=== PATIENT | male | born 1940 | race Caucasian/White ===

== ENCOUNTER 2018-03-12 09:00 | Emergency (ER) | payer MEDICAID, MEDICARE ==
[2018-03-12 09:19] VITALS: RESP 18
[2018-03-12 09:20] VITALS: BMI 25.0
[2018-03-12 10:38] LABS: URINE BILIRUBIN NEGATIVE (NEGATIVE); URINE BLOOD NEGATIVE (NEGATIVE); URINE CLARITY Clear (Clear); URINE COLOR Yellow (YELLOW); URINE GLUCOSE (UA) NORMAL (Normal); URINE LEUKOCYTE ESTERASE NEG Leu/uL (Negative); URINE PROTEIN NEGATIVE (NEGATIVE); URINE UROBILINOGEN NORMAL mg/dL (0.2-1.0)
--- NOTE | 2018-03-12 11:22 | RAD ---
PROCEDURE: Radiographs of the Lumbar Spine. HISTORY: Low back pain x 2 weeks COMPARISON: Obstructive series dated 02/22/2013. FINDINGS: BONES: Normal alignment. No listhesis. Age-indeterminate compression deformities of T11-L2 which look similar in appearance on AP view. DISC SPACES: Multilevel disc space narrowing. OTHER FINDINGS: None. IMPRESSION: Age-indeterminate compression deformities from T11-L2 which looks similar in appearance on AP view in comparison to obstructive series dated 02/22/2013. Multilevel degenerative changes.
[2018-03-12 11:36] VITALS: BP 142/78; PULSE 81; TEMP 98.1; O2SAT 98
--- NOTE | 2018-03-12 12:10 | C.PDOC ---
Time Seen by Provider: 03/12/18 09:44 Chief Complaint (Nursing): Back Pain History Per: Patient, [employer] History/Exam Limitations: language barrier Onset/Duration Of Symptoms: Days (about 2 weeks) Current Symptoms Are (Timing): Still Present Quality Of Discomfort: "Pain" Severity: Moderate Previous Symptoms: Back Pain Associated Symptoms: None Exacerbating Factor(s): Movement Additional History Per: Prior Records Past Medical History Reviewed: Historical Data, Nursing Documentation, Vital Signs Vital Signs: Last Vital Signs Temp 98.1 F 03/12/18 11:35 Pulse 81 03/12/18 11:35 Resp 18 03/12/18 11:35 BP 142/78 03/12/18 11:35 Pulse Ox 98 03/12/18 11:35 - Medical History PMH: Benign Prostatic Hyperplasia - [facility] Procedures CLOSED ENDOSCOPIC BIOPSY OF LARGE INTESTINE (07/04/13) Family History: States: Unknown Family Hx - Social History Hx Tobacco Use: Yes Hx Alcohol Use: Yes Hx Substance Use: No - Immunization History Hx Tetanus Toxoid Vaccination: Yes Hx Influenza Vaccination: No Hx Pneumococcal Vaccination: No Review Of Systems Except As Marked, All Systems Reviewed And Found Negative. Constitutional: Negative for: Fever, Weakness Cardiovascular: Negative for: Chest Pain Respiratory: Negative for: Shortness of Breath Gastrointestinal: Positive for: Constipation. Negative for: Vomiting, Abdominal Pain Genitourinary: Negative for: Dysuria, Incontinence, Hematuria Musculoskeletal: Positive for: Back Pain. Negative for: Neck Pain Skin: Negative for: Rash Neurological: Negative for: Weakness, Numbness Physical Exam - Physical Exam Appears: Non-toxic, No Acute Distress Skin: Normal Color, Warm, Dry, No Rash Head: Atraumatic, Normacephalic Eye(s): bilateral: Normal Inspection, PERRL, EOMI Neck: Normal ROM, Supple Cardiovascular: Rhythm Regular Respiratory: Normal Breath Sounds, No Accessory Muscle Use Gastrointestinal/Abdominal: Soft, No Tenderness, No Mass Back: No CVA Tenderness, Paraspinal Tenderness (lumbar) Extremity: Normal ROM, No Pedal Edema, No Calf Tenderness Neurological/Psych: Oriented x3, Normal Motor, Normal Sensation ED Course And Treatment O2 Sat by Pulse Oximetry: 98 Pulse Ox Interpretation: Normal - Other Rad LS spine x-rays X-Ray: Viewed By Me, Read By Radiologist Interpretation: IMPRESSION: Age-indeterminate compression deformities from T11- L2 which looks similar in appearance on AP view in comparison to obstructive series dated 02/22/2013. Multilevel degenerative changes. Reassessment Condition: Improved Disposition Counseled Patient/Family Regarding: Studies Performed, Diagnosis, Need For Followup, Rx Given - Disposition Referrals: Dana Omalley MD [Medical Doctor] - Disposition: HOME/ ROUTINE Disposition Time: 12:10 Condition: STABLE Additional Instructions: Follow up with your doctor for further evaluation and treatment. Return to the ER if you develop abdominal pain, trouble urinating, weakness, numbness, worsening of symptoms or if you have any other concerns. Prescriptions: Polyethylene Glycol 3350 [Miralax] 17 gm PO DAILY #7 packet traMADol/Acetaminophen [Ultracet 325 MG-37.5 MG] 1 tab PO Q4 PRN #30 tab PRN Reason: Pain, Severe (8-10) Instructions: Low Back Pain (DC) Forms: [employer] (Taiwanese) Print Language: TURKMEN - Clinical Impression Clinical Impression: Low back pain
== END 2018-03-12 12:20 | disposition home or self-care (01) ==
LOC: C.ER 09:00
DX: M54.5 Low back pain (principal)
CPT/HCPCS: 72100; 81001; 96372; 99285; J1885

== ENCOUNTER 2018-03-13 09:46 | Emergency (ER) | payer MEDICARE ==
[2018-03-13 09:46] VITALS: BMI 25.0
[2018-03-13 09:55] VITALS: BP 149/87; PULSE 88; RESP 18; TEMP 98.3; O2SAT 97
[2018-03-13] MEDS ORDERED: Magnesium Citrate Oral SOL (300 ml) PO ONE (10:29)
[2018-03-13] MEDS ORDERED: Naproxen 550 mg Tab PO STA (10:29)
--- NOTE | 2018-03-13 10:31 | C.PDOC ---
History Of Present Illness 78yo male, comes to ER with complaints of lower back pain x 2 weeks and constipation for the past 5 days. He denies any falls, injuries, dysuria, fever , nausea or vomiting. He also denies any sensory changes in his legs, urinary retention, bowel or bladder dysfunction. Patient was seen in the ER yesterday and given prescription for Miralax and Ultracet which he did not fill because it was too expensive. Time Seen by Provider: 03/13/18 10:02 Chief Complaint (Nursing): Back Pain History Per: Patient History/Exam Limitations: no limitations Onset/Duration Of Symptoms: Days Current Symptoms Are (Timing): Still Present Quality Of Discomfort: "Pain" Associated Symptoms: denies: Incontinence, New Weakness, New Numbness Additional History Per: Patient Past Medical History Reviewed: Historical Data, Nursing Documentation, Vital Signs Vital Signs: Last Vital Signs Temp 98.3 F 03/13/18 09:53 Pulse 88 03/13/18 09:53 Resp 18 03/13/18 09:53 BP 149/87 03/13/18 09:53 Pulse Ox 97 03/13/18 10:31 - Medical History PMH: Benign Prostatic Hyperplasia Surgical History: No Surg Hx - [facility] Procedures CLOSED ENDOSCOPIC BIOPSY OF LARGE INTESTINE (07/04/13) Family History: States: Unknown Family Hx - Social History Hx Tobacco Use: Yes Hx Alcohol Use: No Hx Substance Use: No - Immunization History Hx Tetanus Toxoid Vaccination: Yes Hx Influenza Vaccination: No Hx Pneumococcal Vaccination: No Review Of Systems Gastrointestinal: Positive for: Constipation Genitourinary: Negative for: Incontinence Musculoskeletal: Positive for: Back Pain Neurological: Negative for: Weakness, Numbness Physical Exam - Physical Exam Appears: Non-toxic, No Acute Distress Skin: Normal Color Head: Atraumatic, Normacephalic Eye(s): bilateral: Normal Inspection Neck: Supple Chest: Symmetrical Cardiovascular: Rhythm Regular Respiratory: Normal Breath Sounds Gastrointestinal/Abdominal: Normal Exam, Soft Back: No CVA Tenderness, No Vertebral Tenderness, No Decreased ROM, Paraspinal Tenderness (mild paralumbar tenderness), No Straight Leg Raising Extremity: Normal ROM, No Pedal Edema, No Deformity Neurological/Psych: Oriented x3 Gait: Steady ED Course And Treatment O2 Sat by Pulse Oximetry: 97 (RA) Pulse Ox Interpretation: Normal Progress Note: Patient given Naproxen and Magnesuim and Citrate in ER. On reevaluation, patient reports feeling better and is stable for discharge home. Instructed to fill his prescriptions from his previous visit and to follow up with his PMD. Disposition Counseled Patient/Family Regarding: Diagnosis, Need For Followup - Disposition Referrals: Enrrique Dill MD [Non-Staff] - Disposition: HOME/ ROUTINE Disposition Time: 10:40 Condition: STABLE Additional Instructions: YOU NEED TO FILL THE PRESCRIPTIONS GIVEN TO YOU YESTERDAY IN THE EMERGENCY ROOM FOLLOW UP WITH YOUR PRIMARY DOCTOR IN 1-2 DAYS RETURN TO EMERGENCY ROOM IF SYMPTOMS WORSEN NECESITA LLENAR LAS RECETAS QUE LE SHASHI ELTON EN LA [place] DE EMERGENCIAS SEGUIMIENTO CON MADSEN DOCTOR PRIMARIO EN 1-2 CONCEPCION REGRESE AL KEYONNA DE EMERGENCIA SI LOS SNTOMAS EMPEORAN Instructions: Constipation, Adult (DC), Low Back Pain (DC) Forms: [employer] (Honduran) Print Language: MALTESE - Clinical Impression Clinical Impression: Low back pain, Constipation - Scribe Statement The provider has reviewed the documentation as recorded by the Marc Cabrera Provider Attestation: All medical record entries made by the Santoibsheldon were at my direction and personally dictated by me. I have reviewed the chart and agree that the record accurately reflects my personal performance of the history, physical exam, medical decision making, and the department course for this patient. I have also personally directed, reviewed, and agree with the discharge instructions and disposition.
[2018-03-13] MEDS ORDERED: Naproxen 550 mg Tab PO ONE (10:35)
[2018-03-13] MEDS ORDERED: Magnesium Citrate Oral SOL (300 ml) ONE (10:36)
== END 2018-03-13 10:39 | disposition home or self-care (01) ==
LOC: C.ER 09:46
DX: M54.5 Low back pain (principal); K59.00 Constipation, unspecified